=== PATIENT | female | born 1940 | race Caucasian/White ===

== ENCOUNTER 2017-08-10 00:08 | Observation (INO) | payer OTHER ==
[2017-08-10 00:28] VITALS: BMI 28.3
--- NOTE | 2017-08-10 00:29 | PDOC ---
History of Present Illness - General Chief Complaint: Blood Pressure Problem Stated Complaint: R/O BLOOD PRESSURE PROBLEM Time Seen by Provider: 08/10/17 00:25 History Source: Patient - History of Present Illness Initial Comments: 08/10/17 00:46 77 year old female with right sided chest pain worse with inspiration x 2 days and headache. patient believe this is related to high blood pressure. denies NV , diaphoresis, lower extremity edema, recent long travel, prolonged sitting, smoking. Patient has a past medical history of Hypertension. 08/10/17 02:38 Past History - Past Medical History Allergies/Adverse Reactions: Allergies Allergy/AdvReac Type Severity Reaction Status Date / Time No Known Allergies Allergy Verified 08/10/17 00:25 Home Medications: Ambulatory Orders Atorvastatin Ca [Lipitor (Restricted To Cardiology)] 20 mg PO HS 10/01/11 Hydrochlorothiazide [Hctz -] 12.5 mg PO DAILY 08/10/17 Olmesartan Medoxomil [Benicar (Nf)] 40 mg PO DAILY 08/10/17 Omeprazole 40 mg PO DAILY 08/10/17 Anemia: No Asthma: No Cancer: No Cardiac Disorders: No CVA: No COPD: No CHF: No Dementia: No Diabetes: No GI Disorders: Yes (gerd) Disorders: No HTN: Yes Hypercholesterolemia: Yes Liver Disease: No Seizures: No Thyroid Disease: No - Surgical History Abdominal Surgery: No Appendectomy: No Cardiac Surgery: No Cholecystectomy: No Lung Surgery: No Neurologic Surgery: No Orthopedic Surgery: No - Suicide/Smoking/Psychosocial Hx Smoking History: Never smoked Hx Alcohol Use: No Drug/Substance Use Hx: No Substance Use Type: None Review of Systems - Review of Systems Able to Perform ROS?: Yes Is the patient limited [place]er proficient: No Constitutional: No: Symptoms Reported, See HPI, Chills, Diaphoresis, Fever, Loss of Appetite, Malaise, Night Sweats, Weakness, Weight Stable, Unintentional Wgt. Loss, Unexplained wgt Loss, Other HEENTM: No: Symptoms Reported, See HPI, Eye Pain, Blurred Vision, Tearing, Recent change in vision, Double Vision, Cataracts, Ear Pain, Ocular Prothesis, Ear Discharge, Nose Pain, Nose Congestion, Tinnitus, Nose Bleeding, Hearing Loss , Throat Pain, Throat Swelling, Mouth Pain, Dental Problems, Difficulty Swallowing, Mouth Swelling, Other Respiratory: No: Symptoms reported, See HPI, Cough, Orthopnea, Shortness of Breath, SOB with Exertion, SOB at Rest, Stridor, Wheezing, Productive cough, Hemoptysis, Other Cardiac (ROS): Yes: Chest Pain. No: Symptoms Reported, See HPI, Edema, Irregular Heart Rate, Lightheadedness, Palpitations, Syncope, Chest Tightness, Other ABD/GI: No: Symptoms Reported, See HPI, Abdominal Distended, Abd. Pain w/ defecation, Blood Streaked Bowels, Constipated, Diarrhea, Difficulty Swallowing , Nausea, Poor Appetite, Poor Fluid Intake, Rectal Bleeding, Vomiting, Indigestion, Abdominal cramping, Tarry Stools, Other : No: Symptoms Reported, See HPI, Burning, Dysuria, Discharge, Frequency, Flank Pain, Hematuria, Incontinence, Pain, Urgency, Testicular Mass, Testicular Swelling, Lesions, Testicular Pain, Other *Physical Exam - Vital Signs Last Vital Signs Temp Pulse Resp BP Pulse Ox 70 18 151/72 98 08/10/17 00:27 08/10/17 00:27 08/10/17 00:27 08/10/17 00:27 - Physical Exam General Appearance: Yes: Appropriately Dressed Respiratory/Chest: positive: Lungs Clear, Normal Breath Sounds Gastrointestinal/Abdominal: positive: Normal Bowel Sounds, Soft Musculoskeletal: positive: Normal Inspection Extremity: positive: Normal Capillary Refill, Normal Inspection, Normal Range of Motion, Pedal Edema (b/l ) Integumentary: positive: Normal Color, Dry, Warm Neurologic: positive: Fully Oriented, Alert, Normal Mood/Affect ED Treatment Course - LABORATORY CBC & Chemistry Diagram: 08/10/17 00:53 08/10/17 00:53 Medical Decision Making - Medical Decision Making 08/10/17 02:35 A: pleuritic chest pain, P: EKG: NSR 61 bpm. right budle branch block. CBC CMP d-dimer 544 Under PE age rule. 08/10/17 02:50 *DC/Admit/Observation/Transfer Diagnosis at time of Disposition: Chest pain in adult - Discharge Dispostion Admit: Yes - Referrals Referrals: Yaniv Magaña [Primary Care Provider] - - Patient Instructions - Post Discharge Activity
[2017-08-10] MEDS ORDERED: ASPIRIN 81 MG CHEWABLE TABLETS PO ONE (00:38)
[2017-08-10] MEDS ORDERED: ASPIRIN 81 MG CHEWABLE TABLETS ONE (00:53)
[2017-08-10 01:01] LABS: BASO % 0.9 % (0-2.0); EOS % 4.6 % (0-4.5); HEMATOCRIT 35.3 % (32.4-45.2); HEMOGLOBIN 11.8 GM/dL (10.7-15.3); LYMPH % 24.2 % (8-40); MCH 29.2 pg (25.7-33.7); MCHC 33.3 g/dl (32.0-36.0); MEAN CELL VOLUME 87.5 fl (80-96); MEAN PLT VOLUME 10.5 fl (7.5-11.1); MONO % 12.2 % (3.8-10.2); NEUT % 58.1 % (42.8-82.8); PLATELET COUNT 165 K/MM3 (134-434); RBC 4.03 M/mm3 (3.60-5.2); RDW 14.2 % (11.6-15.6); WHITE BLOOD COUNT 6.2 K/mm3 (4.0-10.0)
[2017-08-10 01:20] LABS: INR 0.99 (0.82-1.09); PROTHROMBIN TIME (PATIENT) 11.2 SEC (9.98-11.88)
[2017-08-10 01:29] LABS: ALBUMIN 3.3 g/dl (3.4-5.0); ANION GAP 12 (8-16); BILIRUBIN,TOTAL 0.3 mg/dL (0.2-1.0); BLOOD UREA NITROGEN 21 mg/dL (7-18); CALCIUM 8.8 mg/dL (8.5-10.1); CHLORIDE 104 mmol/L (98-107); CO2 23 mmol/L (21-32); CREATININE 1.3 mg/dL (0.55-1.02); GLUCOSE,RANDOM 87 mg/dL (74-106); MAGNESIUM 2.4 mg/dL (1.8-2.4); POTASSIUM 4.2 mmol/L (3.5-5.1); SGOT/AST 16 U/L (15-37); SGPT/ALT 14 U/L (12-78); SODIUM 139 mmol/L (136-145); TOT PROT 7.4 g/dl (6.4-8.2)
[2017-08-10 01:32] LABS: ALK PHOS 83 U/L (45-117)
--- NOTE | 2017-08-10 03:14 | HP ---
CHIEF COMPLAINT: chest pain, headache PCP: in [facility] HISTORY OF PRESENT ILLNESS: This is a 77 year old female with a past medical history significant for HTN, HLD who presented to the ED with chest pain since 11pm on 08/09/17. Pt reports that the chest pain radiated up the right side of her neck and down the right side of her arm. She also reports headache, dizziness and blurry vision at the time. Pt states that all of her symptoms have resolved at the time of exam. ER course was notable for: (1) Trop neg x 1 (2) D dimer elevated but normal when adjusted for age Recent Travel: pt denies PAST MEDICAL HISTORY: HTN, HLD, GERD, osteoporosis PAST SURGICAL HISTORY: pt denies Social History: Smoking: pt denies Alcohol: pt denies Drugs: pt denies Family History: mother age 94, no medical problems father age 80, unk etiology no siblings children alive and well, no medical problems Allergies No Known Allergies Allergy (Verified 08/10/17 00:25) HOME MEDICATIONS: 3 Medication Instructions Recorded Atorvastatin Ca [Lipitor 20 mg PO HS 10/01/11 (Restricted To Cardiology)] Hydrochlorothiazide [Hctz -] 12.5 mg PO DAILY 08/10/17 Olmesartan Medoxomil [Benicar (Nf)] 40 mg PO DAILY 08/10/17 Omeprazole 40 mg PO DAILY 08/10/17 REVIEW OF SYSTEMS CONSTITUTIONAL: Absent: fever, chills, diaphoresis, generalized weakness, malaise, loss of appetite, weight change HEENT: Absent: rhinorrhea, nasal congestion, throat pain, throat swelling, difficulty swallowing, mouth swelling, ear pain, eye pain, visual changes CARDIOVASCULAR: Present: chest pain Absent: syncope, palpitations, irregular heart rate, lightheadedness, peripheral edema RESPIRATORY: Absent: cough, shortness of breath, dyspnea with exertion, orthopnea, wheezing, stridor, hemoptysis GASTROINTESTINAL: Absent: abdominal pain, abdominal distension, nausea, vomiting, diarrhea, constipation, melena, hematochezia GENITOURINARY: Absent: dysuria, frequency, urgency, hesitancy, hematuria, flank pain, genital pain MUSCULOSKELETAL: Absent: myalgia, arthralgia, joint swelling, back pain, neck pain SKIN: Absent: rash, itching, pallor HEMATOLOGIC/IMMUNOLOGIC: Absent: easy bleeding, easy bruising, lymphadenopathy, frequent infections ENDOCRINE: Absent: unexplained weight gain, unexplained weight loss, heat intolerance, cold intolerance NEUROLOGIC: Present: headache, dizziness Absent: focal weakness or paresthesias, unsteady gait, seizure, mental status changes, bladder or bowel incontinence PSYCHIATRIC: Absent: anxiety, depression, suicidal or homicidal ideation, hallucinations. PHYSICAL EXAMINATION Vital Signs - 24 hr 3 08/10/17 00:27 Pulse Rate 70 Respiratory 18 Rate Blood Pressure 151/72 O2 Sat by Pulse 98 Oximetry (%) GENERAL: Awake, alert, and fully oriented, in no acute distress. HEAD: Normal with no signs of trauma. EYES: Pupils equal, round and reactive to light, extraocular movements intact, sclera anicteric, conjunctiva clear. No lid lag. EARS, NOSE, THROAT: Ears normal, nares patent, oropharynx clear without exudates. Moist mucous membranes. NECK: Normal range of motion, supple without lymphadenopathy, JVD, or masses. LUNGS: Breath sounds equal, clear to auscultation bilaterally. No wheezes, and no crackles. No accessory muscle use. HEART: Regular rate and rhythm, normal S1 and S2 without murmur, rub or gallop. ABDOMEN: Soft, nontender, not distended, normoactive bowel sounds, no guarding, no rebound, no masses. No hepatomegaly or splenomegaly. MUSCULOSKELETAL: Normal range of motion at all joints. No bony deformities or tenderness. No CVA tenderness. UPPER EXTREMITIES: 2+ pulses, warm, well-perfused. No cyanosis. No clubbing. No peripheral edema. LOWER EXTREMITIES: 2+ pulses, warm, well-perfused. No calf tenderness. No peripheral edema. NEUROLOGICAL: Cranial nerves II-XII intact. Normal speech. Normal gait. PSYCHIATRIC: Cooperative. Good eye contact. Appropriate mood and affect. SKIN: Warm, dry, normal turgor, no rashes or lesions noted, normal capillary refill. Laboratory Results - last 24 hr 3 08/10/17 08/10/17 08/10/17 00:53 00:53 00:53 WBC 6.2 RBC 4.03 Hgb 11.8 Hct 35.3 MCV 87.5 MCH 29.2 MCHC 33.3 RDW 14.2 Plt Count 165 MPV 10.5 Neutrophils % 58.1 Lymphocytes % 24.2 D Monocytes % 12.2 H Eosinophils % 4.6 H Basophils % 0.9 PT with INR 11.20 INR 0.99 D-Dimer 544 H Sodium 139 Potassium 4.2 Chloride 104 Carbon Dioxide 23 Anion Gap 12 BUN 21 H Creatinine 1.3 H Creat Clearance w eGFR 39.93 Random Glucose 87 Calcium 8.8 Magnesium 2.4 Total Bilirubin 0.3 D AST 16 ALT 14 Alkaline Phosphatase 83 Creatine Kinase 90 Troponin I < 0.02 Total Protein 7.4 Albumin 3.3 L ECG NSR Vent rate 61, QTC 463 RBBB minimal voltage criteria for LVH TWI lead 3, V2, V3 when compared with ECG 01/13/16, TWI no longer present in lead V4 Radiology Reports CXR- final read pending. no obvious infiltrate or effusion ASSESSMENT/PLAN: 77yF with PMH HTN, HLD, GERD, osteoporosis presented to the ED with chest pain, headache, dizziness. Chest pain - Heart score of 4 - will admit for observation, serial troponins, cardiac monitoring - consider cardiology consult headache/dizziness - resolved - CT head if symptoms recur HTN/HLD - cont home meds GERD - home omeprazole changed to formulary protonix DVT PPX - low risk given expected LOS <48h, defer heparin FEN - pt tolerating po - bmp in am - low sodium diet as tolerated Dispo: admit for further observation Visit type - Emergency Visit Emergency Visit: Yes ED Registration Date: 08/10/17 Care time: The patient presented to the Emergency Department on the above date and was hospitalized for further evaluation of their emergent condition. - New Patient This patient is new to me today: Yes Date on this admission: 08/10/17 - Critical Care Critical Care patient: No Hospitalist Screening - Colonoscopy Questionnaire Colonoscopy Questionnaire: Colonoscopy Questionnaire - Patient: 50 - 75 years old and never had a screening colonoscopy: Yes History of colon or rectal polyps, or CA: No History of IBD, Crohn's disease or UC: No History of abdominal radiation therapy as a child: No - Relative: 1 with colon or rectal CA, or polyps at age 60 or younger: No Colon or rectal CA diagnosed at age 45 or younger: No Multiple relatives with colon or rectal CA: No - Outcome: Screening Result: Positive Screen
[2017-08-10 06:53] LABS: BASO % 0.9 % (0-2.0); EOS % 5.3 % (0-4.5); HEMATOCRIT 33.2 % (32.4-45.2); LYMPH % 29.1 % (8-40); MCH 29.2 pg (25.7-33.7); MCHC 33.2 g/dl (32.0-36.0); MEAN CELL VOLUME 87.8 fl (80-96); MEAN PLT VOLUME 9.4 fl (7.5-11.1); MONO % 10.6 % (3.8-10.2); NEUT % 54.1 % (42.8-82.8); PLATELET COUNT 144 K/MM3 (134-434); RBC 3.79 M/mm3 (3.60-5.2); WHITE BLOOD COUNT 5.7 K/mm3 (4.0-10.0)
[2017-08-10 07:19] LABS: ANION GAP 6 (8-16); BLOOD UREA NITROGEN 21 mg/dL (7-18); CALCIUM 8.4 mg/dL (8.5-10.1); CHLORIDE 106 mmol/L (98-107); CO2 27 mmol/L (21-32); CREATININE 1.1 mg/dL (0.55-1.02); GLUCOSE,RANDOM 91 mg/dL (74-106); MAGNESIUM 2.1 mg/dL (1.8-2.4); PHOSPHOROUS 4.1 mg/dL (2.5-4.9); POTASSIUM 3.7 mmol/L (3.5-5.1); SODIUM 139 mmol/L (136-145)
[2017-08-10 07:23] VITALS: TEMP 98
[2017-08-10] MEDS ORDERED: PATIENT'S OWN MEDICATION (NON-FORMULARY) (Omeprazole [Omeprazole] 40 MG) PO SCH (10:00)
[2017-08-10] MEDS ORDERED: PANTOPRAZOLE 40 MG TABLET (FP) PO SCH (10:00)
[2017-08-10] MEDS ORDERED: PATIENT'S OWN MEDICATION (NON-FORMULARY) (Olmesartan Medoxomil 40 MG) PO SCH (10:00)
[2017-08-10] MEDS ORDERED: HYDROCHLOROTHIAZIDE 12.5 MG CAPSULE (FP) PO SCH (10:00)
[2017-08-10] MEDS ORDERED: VALSARTAN 160 MG TABLET (UD) PO SCH (10:00)
[2017-08-10] MEDS ORDERED: PANTOPRAZOLE 40 MG TABLET (FP) ONE (10:08)
[2017-08-10] MEDS ORDERED: VALSARTAN 80 MG TABLET (UD) ONE (10:08)
--- NOTE | 2017-08-10 11:28 | EKG ---
Test Reason : Blood Pressure : / mmHG Vent. Rate : 061 BPM Atrial Rate : 061 BPM P-R Int : 162 ms QRS Dur : 134 ms QT Int : 460 ms P-R-T Axes : 045 -19 011 degrees QTc Int : 463 ms NORMAL SINUS RHYTHM RIGHT BUNDLE BRANCH BLOCK MINIMAL VOLTAGE CRITERIA FOR LVH, MAY BE NORMAL VARIANT ABNORMAL ECG WHEN COMPARED WITH ECG OF 13-JAN-2016 18:35, NO SIGNIFICANT CHANGE WAS FOUND Confirmed by MD Isauro, Tavon ([id number]) on 08/10/2017 11:28:26 AM Referred By: Confirmed By:Tavon Box MD
--- NOTE | 2017-08-10 12:51 | PN ---
Teaching Attending Note Name of Resident: Faizan Berg ATTENDING PHYSICIAN STATEMENT I saw and evaluated the patient. I reviewed the resident's note and discussed the case with the resident. I agree with the resident's findings and plan as documented. SUBJECTIVE: no fever or chill s, denies CP . CP resolved on admission to ER. she described it as R sided CP in R upper chest and R shoulder wich starte din neck and was associated with numbness in R hand fingers. pain lasted 2.5 days but numbness was for few min. now CP free , with no OSB , no ARAIZA , ,dizziness or any other sx denies any pain in LE , SOB , or cough. cp was not worse with breathing. she denies recent travel ,or prolonged train/plane/car rise OBJECTIVE: NAD CV: RRR, 2/6 Sm at SB. no JVD Lungs: CTAB Ext: no edema , no erythema , no calf tenderness neuro : strength in upper ext: 5/5 in biceps , triceps and shoulder abduction. in LE : 5/5 in hip flexion and knee extens ion/flexion. reflexes 2+ knee jerk and 2+ biceps b/l. nl sensation to light touch. ASSESSMENT AND PLAN: 77 y/o lady with h/o HTN, GERD and HLP who presented with R sided cp which resolved on its own . 1- R sided CP, atypical in nature. EKG at MO reviewed, with no acute ischemic changes ( RBBB, and L axis deviation, an dno change form jan EKG ) . EKG repeated this am x 2 and no change form MN one . trop Nl x 2 . pain could be due to pinched nerve in C spine area , give the associated numbness in hand and fingers on same side and also origin of pain in neck and R sied scalp per her. although D dimer is slightly elevated per lab assay, but age adjusted d dimer for this lady is up to 750, and along with low clinical suspicion for PE ( WELLS score for PE of 0 ) , this does not indicate PE. in addition her pain had resolved, NL SatO2. No need for further investigation as in pt 2- HTN: cont her BP mds 3- LIZA: cr improved form 1.3 to 1.1 withno intervention. hold today's dose of HCTZ and resume tomorrow dc Home d/w daughter and pt
--- NOTE | 2017-08-10 15:08 | EKG ---
Test Reason : Blood Pressure : / mmHG Vent. Rate : 060 BPM Atrial Rate : 060 BPM P-R Int : 134 ms QRS Dur : 134 ms QT Int : 462 ms P-R-T Axes : 052 -16 017 degrees QTc Int : 462 ms POOR DATA QUALITY, INTERPRETATION MAY BE ADVERSELY AFFECTED NORMAL SINUS RHYTHM RIGHT BUNDLE BRANCH BLOCK MINIMAL VOLTAGE CRITERIA FOR LVH, MAY BE NORMAL VARIANT ABNORMAL ECG WHEN COMPARED WITH ECG OF 10-AUG-2017 00:51, NO SIGNIFICANT CHANGE WAS FOUND Confirmed by MD Isauro, Tavon ([id number]) on 08/10/2017 3:07:38 PM Referred By: Confirmed By:Tavon Box MD
--- NOTE | 2017-08-10 15:08 | EKG ---
Test Reason : Blood Pressure : / mmHG Vent. Rate : 062 BPM Atrial Rate : 062 BPM P-R Int : 142 ms QRS Dur : 138 ms QT Int : 454 ms P-R-T Axes : 039 -14 009 degrees QTc Int : 460 ms NORMAL SINUS RHYTHM RIGHT BUNDLE BRANCH BLOCK MINIMAL VOLTAGE CRITERIA FOR LVH, MAY BE NORMAL VARIANT ABNORMAL ECG WHEN COMPARED WITH ECG OF 10-AUG-2017 09:57, NO SIGNIFICANT CHANGE WAS FOUND Confirmed by MD Isauro, Tavon ([id number]) on 08/10/2017 3:07:27 PM Referred By: Confirmed By:Tavon Box MD
[2017-08-10 17:36] VITALS: BP 136/81; PULSE 70
--- NOTE | 2017-08-10 17:46 | DS ---
Physical Exam: SUBJECTIVE: Patient's chest pain resolved. No SOB, no headache or dizziness. OBJECTIVE: Vital Signs Period Temp Pulse Resp BP Sys/Romero Pulse Ox Last 24 Hr 98 F 57-70 15-18 124-151/67-89 96-100 PHYSICAL EXAM GENERAL: AOx3 EYES: PERRLA, EOMI LUNGS: CTA, no wheezes on exam HEART: RRR, systolic murmur noted on exam, no rubs or gallops ABDOMEN: Soft, nontender, BS present EXTREMITIES: No edema NEUROLOGICAL: CN II-XII, no motor or sensory deficitys PSYCH: Normal mood, normal affect. SKIN: Warm, dry, normal turgor, no rashes or lesions noted. LABS Laboratory Results - last 24 hr 08/10/17 08/10/17 08/10/17 00:53 00:53 00:53 WBC 6.2 RBC 4.03 Hgb 11.8 Hct 35.3 MCV 87.5 MCH 29.2 MCHC 33.3 RDW 14.2 Plt Count 165 MPV 10.5 Neutrophils % 58.1 Lymphocytes % 24.2 D Monocytes % 12.2 H Eosinophils % 4.6 H Basophils % 0.9 PT with INR 11.20 INR 0.99 D-Dimer Sodium 139 Potassium 4.2 Chloride 104 Carbon Dioxide 23 Anion Gap 12 BUN 21 H Creatinine 1.3 H Creat Clearance w eGFR 39.93 Random Glucose 87 Calcium 8.8 Phosphorus Magnesium 2.4 Total Bilirubin 0.3 D AST 16 ALT 14 Alkaline Phosphatase 83 Creatine Kinase 90 Troponin I < 0.02 Total Protein 7.4 Albumin 3.3 L 08/10/17 08/10/17 08/10/17 00:53 06:20 06:20 WBC 5.7 RBC 3.79 Hgb 11.0 Hct 33.2 MCV 87.8 MCH 29.2 MCHC 33.2 RDW 14.0 Plt Count 144 MPV 9.4 D Neutrophils % 54.1 Lymphocytes % 29.1 D Monocytes % 10.6 H Eosinophils % 5.3 H Basophils % 0.9 PT with INR INR D-Dimer 544 H Sodium 139 Potassium 3.7 Chloride 106 Carbon Dioxide 27 Anion Gap 6 L BUN 21 H Creatinine 1.1 H Creat Clearance w eGFR Random Glucose 91 Calcium 8.4 L Phosphorus 4.1 Magnesium 2.1 Total Bilirubin AST ALT Alkaline Phosphatase Creatine Kinase 77 Troponin I < 0.02 Total Protein Albumin 08/10/17 13:00 WBC RBC Hgb Hct MCV MCH MCHC RDW Plt Count MPV Neutrophils % Lymphocytes % Monocytes % Eosinophils % Basophils % PT with INR INR D-Dimer Sodium Potassium Chloride Carbon Dioxide Anion Gap BUN Creatinine Creat Clearance w eGFR Random Glucose Calcium Phosphorus Magnesium Total Bilirubin AST ALT Alkaline Phosphatase Creatine Kinase 86 Troponin I < 0.02 Total Protein Albumin IMAGING: CXR: No acute pathology HOSPITAL COURSE: Date of Admission:08/10/17 77 year old female with a past medical history of HTN and HLD first presented to the ED for 1 day hx of right-sided chest pain, R arm and neck pain, blurry vision and headache. She was given aspirin in the ED. Her symptoms resolved before admission. EKG done in the ED showed normal sinus rhythm w/ R bundle branch block without any ST changes. Troponins returned negative on two counts. Labs were within normal limits. Patient was admitted by ED for observation. Patient remained asymptomatic while in the hospital. EKG was repeated and was unchanged from initial EKG. Because of low risk of being ACS due to clinical exam and labwork, patient was discharged home and instructed to see her PCP in 1 week and to make an appointment with the revenue settlements administrator Dr. Rodriguez. Date of Discharge: 08/10/17 Minutes to complete discharge: 35 Discharge Summary Reason For Visit: CHEST PAIN IN ADULT Current Active Problems Chest pain in adult (Acute) Condition: Improved - Instructions Diet, Activity, Other Instructions: You were admitted to the hospital for the treatment of chest pain. After we ran some tests for your heart, we do not believe the chest pain came from your heart. The pain was likely related to a muscular issue in your chest wall or your blood pressure. Medical Recommendations: -It is important that you maintain your blood pressure at an appropriate level. -Continue your home blood pressure medications, but make sure to see your doctor within a week to discuss any changes Referrals: -Please make an appointment with your primary care physician within 1 week of discharge -Please make an appointment with the revenue settlements administrator Dr. Rodriguez, to evaluate your heart further within 1- 2 weeks Referrals: Yaniv Magaña [Primary Care Provider] - 1 Week Navneet Rodriguez MD [Staff Physician] - 2 Weeks Disposition: HOME - Home Medications Comprehensive Discharge Medication List: Ambulatory Orders Atorvastatin Ca [Lipitor] 20 mg PO HS 10/01/11 Hydrochlorothiazide [Hctz -] 12.5 mg PO DAILY 08/10/17 Ibandronate Sodium 150 mg PO MONTHLY 08/10/17 Mometasone Furoate [Elocon] 15 gm TP BID 08/10/17 Olmesartan Medoxomil [Benicar -] 40 mg PO DAILY 08/10/17 Omeprazole 40 mg PO DAILY 08/10/17 This patient is new to me today: Yes Date on this admission: 08/10/17 Emergency Visit: Yes ED Registration Date: 08/10/17 Care time: The patient presented to the Emergency Department on the above date and was hospitalized for further evaluation of their emergent condition. Critical Care patient: No - Discharge Referral Referred to [facility] Med P.C[facility] No
[2017-08-10] MEDS ORDERED: ATORVASTATIN CA 20 MG TABLET (FP) PO SCH (22:00)
== END 2017-08-10 16:30 | disposition home or self-care (01) ==
LOC: JER 00:08 → JERBED 02:41
PROVIDERS: ADMIT Internal Medicine; ATTEND Internal Medicine
DX: R07.89 Other chest pain (principal); I10 Essential (primary) hypertension; E78.5 Hyperlipidemia, unspecified; K21.9 Gastro-esophageal reflux disease without esophagitis; N17.9 Acute kidney failure, unspecified
CPT/HCPCS: 36415; 71046-TC-FY; 80048; 80053; 82550; 83735; 84100; 84484; 85025; 85379; 85610; 93005; 93010; 99284-25; G0378

== ENCOUNTER 2018-01-08 14:56 | Observation (INO) | payer OTHER ==
[2018-01-08 15:10] VITALS: BMI 29.0
[2018-01-08 17:08] LABS: EOS % 4.5 % (0-4.5); HEMATOCRIT 35.3 % (32.4-45.2); LYMPH % 20.2 % (8-40); MCH 30.3 pg (25.7-33.7); MEAN CELL VOLUME 89.1 fl (80-96); MEAN PLT VOLUME 10.8 fl (7.5-11.1); MONO % 9.2 % (3.8-10.2); NEUT % 65.1 % (42.8-82.8); PLATELET COUNT 158 K/MM3 (134-434); RBC 3.96 M/mm3 (3.60-5.2); RDW 13.8 % (11.6-15.6); WHITE BLOOD COUNT 4.7 K/mm3 (4.0-10.0)
[2018-01-08 17:10] LABS: URINE APPEARANCE CLEAR; URINE BILIRUBIN NEGATIVE (<2.0 mg/dL); URINE COLOR COLORLESS; URINE GLUCOSE (UA) NEGATIVE (NEGATIVE); URINE KETONE NEGATIVE (NEGATIVE); URINE LEUK ESTERASE NEGATIVE (NEGATIVE); URINE NITRITE NEGATIVE (NEGATIVE); URINE PROTEIN NEGATIVE (NEGATIVE); URINE UROBILINOGEN NEGATIVE mg/dL (0.2-1.0)
--- NOTE | 2018-01-08 17:19 | PDOC ---
History of Present Illness - General Chief Complaint: Blood Pressure Problem Stated Complaint: HEAD PAIN, FATIGUE Time Seen by Provider: 01/08/18 15:13 - History of Present Illness Initial Comments: 01/08/18 17:15 77 yo F, with a hx of HTN, osteoporosis and HLD, who presents to the ER with high blood pressure, headache and neck pain for the past 2 days. She also reports SOB and vague chest pain which began yesterday. She also feels mildly lightheaded and dizzy. Claims she had blurry vision yesterday. Denies this being the worst headache of her life. Denies acute onset. Denies nausea, vomiting. Denies recent fevers. Says she is compliant with her BP meds. She does not often check her BP. 01/08/18 17:25 Past History - Past Medical History Allergies/Adverse Reactions: Allergies Allergy/AdvReac Type Severity Reaction Status Date / Time No Known Allergies Allergy Verified 01/08/18 15:07 Home Medications: Ambulatory Orders Atorvastatin Ca [Lipitor] 20 mg PO HS 10/01/11 Hydrochlorothiazide [Hctz -] 25 mg PO DAILY 08/10/17 Ibandronate Sodium 150 mg PO MONTHLY 08/10/17 Mometasone Furoate [Elocon] 15 gm TP BID 08/10/17 Olmesartan Medoxomil [Benicar -] 40 mg PO DAILY 08/10/17 Omeprazole 40 mg PO DAILY 08/10/17 Calcium Carbonate/Vitamin D3 [Calcium 500 + Vit D Caplet] 1 each PO DAILY Anemia: No Asthma: No Cancer: No Cardiac Disorders: No CVA: No COPD: No CHF: No Dementia: No Diabetes: No GI Disorders: Yes (gerd) Disorders: No HTN: Yes Hypercholesterolemia: Yes Liver Disease: No Seizures: No Thyroid Disease: No - Surgical History Abdominal Surgery: No Appendectomy: No Cardiac Surgery: No Cholecystectomy: No Lung Surgery: No Neurologic Surgery: No Orthopedic Surgery: No - Immunization History Immunization Up to Date: Yes - Suicide/Smoking/Psychosocial Hx Smoking History: Never smoked Have you smoked in the past 12 months: No Information on smoking cessation initiated: No Hx Alcohol Use: No Drug/Substance Use Hx: No Substance Use Type: None Review of Systems - Review of Systems Comments:: 01/08/18 17:28 CONSTITUTIONAL: Absent: fever, chills, diaphoresis, generalized weakness, malaise, loss of appetite HEENT: Positive: visual changes Absent: rhinorrhea, nasal congestion, throat pain, throat swelling, difficulty swallowing, mouth swelling, ear pain, eye pain CARDIOVASCULAR: Positive: Chest pain, lightheadedness Absent: syncope, palpitations, irregular heart rate, peripheral edema RESPIRATORY: Positive: SOB Absent: cough,dyspnea with exertion, orthopnea, wheezing, stridor, hemoptysis GASTROINTESTINAL: Absent: abdominal pain, abdominal distension, nausea, vomiting, diarrhea, constipation, melena, hematochezia GENITOURINARY: Absent: dysuria, frequency, urgency, hesitancy, hematuria, flank pain, genital pain MUSCULOSKELETAL: Absent: myalgia, arthralgia, joint swelling SKIN: Absent: rash, itching, pallor HEMATOLOGIC/IMMUNOLOGIC: Absent: easy bleeding, easy bruising, lymphadenopathy, frequent infections ENDOCRINE: Absent: unexplained weight gain, unexplained weight loss, heat intolerance, cold intolerance NEUROLOGIC: Positive: Headache, dizziness. Absent: focal weakness or paresthesias, unsteady gait, seizure, mental status changes, bladder or bowel incontinence PSYCHIATRIC: Absent: anxiety, depression, suicidal or homicidal ideation, hallucinations. *Physical Exam - Vital Signs Last Vital Signs Temp Pulse Resp BP Pulse Ox 97.6 F 58 L 18 196/77 100 01/08/18 15:08 01/08/18 15:08 01/08/18 15:08 01/08/18 15:08 01/08/18 15:08 - Physical Exam Comments: 01/08/18 17:30 GENERAL: Looks uncomfortable bc of headache. Well developed, well nourished. Awake and alert. No acute distress. HEENT: Normocephalic, atraumatic. PERRLA, EOMI. No conjunctival pallor. Sclera are non- icteric. Moist mucous membranes. Oropharynx is clear. NECK: Supple. Full ROM. No JVD. Carotid pulses 2+ and symmetric, without bruits. No thyromegaly. No lymphadenopathy. CARDIOVASCULAR: Regular rate and rhythm. No murmurs, rubs, or gallops. Distal pulses are 2+ and symmetric. PULMONARY: Mild congestion at the lung bases, possible crackles. No evidence of respiratory distress. No wheezing, rales or rhonchi. ABDOMINAL: Soft. Non-tender. Non-distended. No rebound or guarding. No organomegaly. Normoactive bowel sounds. MUSCULOSKELETAL Normal range of motion at all joints. No bony deformities or tenderness. No CVA tenderness. EXTREMITIES: No cyanosis. No clubbing. No edema. No calf tenderness. SKIN: Warm and dry. Normal capillary refill. No rashes. No jaundice. NEUROLOGICAL: Alert, awake, appropriate. Cranial nerves 2-12 intact. No deficits to light touch and temperature in face, upper extremities and lower extremities. No motor deficits in the in face, upper extremities and lower extremities. Normoreflexic in the upper and lower extremities. Normal speech. Toes are down-going bilaterally. Gait is normal without ataxia. PSYCHIATRIC: Cooperative. Good eye contact. Appropriate mood and affect. 01/08/18 17:32 ED Treatment Course - LABORATORY CBC & Chemistry Diagram: 01/08/18 17:00 01/08/18 17:00 - ADDITIONAL ORDERS Additional order review: Laboratory Results 01/08/18 17:00 Urine Color Colorless Urine Appearance Clear Urine pH 7.0 D Ur Specific [place] 1.006 Urine Protein Negative Urine Glucose (UA) Negative Urine Ketones Negative Urine Blood Negative Urine Nitrite Negative Urine Bilirubin Negative Urine Urobilinogen Negative Ur Leukocyte Esterase Negative 01/08/18 17:00 RBC 3.96 MCV 89.1 MCHC 34.0 RDW 13.8 MPV 10.8 D Neutrophils % 65.1 D Lymphocytes % 20.2 D Monocytes % 9.2 Eosinophils % 4.5 Basophils % 1.0 - RADIOLOGY Radiology Studies Ordered: Category Date Time Status CHEST PA & LAT [RAD] Stat Radiology 01/08/18 16:43 Ordered Medical Decision Making - Medical Decision Making 01/08/18 17:33 77 yo F w HTN here with high BP and headache. She had her BP meds switched one month back, so it's possible she has had high BP for some time without realizing. Most concerning is to rule out hypertensive urgency/emergency. Plan assess for end organ damage - trop, bun, cr, alt, ast, alk phos, CXR. Giving tylenol for headache relief Patient is going to be admitted bc of her high BP, chest pain and SOB. First trop negative. *DC/Admit/Observation/Transfer Diagnosis at time of Disposition: Headache - Discharge Dispostion Condition at time of disposition: Stable - Referrals Referrals: Yaniv Magaña [Primary Care Provider] - - Patient Instructions - Post Discharge Activity
[2018-01-08] MEDS ORDERED: ACETAMINOPHEN 500 MG TABLET (FP) PO ONE (17:24)
[2018-01-08] MEDS ORDERED: ACETAMINOPHEN 325 MG TABLET (FP) ONE (17:35)
--- NOTE | 2018-01-08 17:42 | PDOC ---
Attending Attestation - Resident Resident Name: KeyonnaPrakash - ED Attending Attestation I have performed the following: I have examined & evaluated the patient, The case was reviewed & discussed with the resident, I agree w/resident's findings & plan, Exceptions are as noted - HPI HPI: 01/08/18 17:34 The patient is a 77 year old female with a significant PMH of HTN, osteoporosis and HLD presenting with gradual onset diffuse headache, shortness of breath, generalized weakness, and chest pressure for the past three days and elevated blood pressure today. The patient states she decided to take her blood pressure today after the persistence of the symptoms. When it was elevated to the 190s, she decided to present to the ED. Blood pressure in the ER is 196/77. Patients bp is typically 130/85. Patient saw a financial professional 2-3 weeks ago and was prescribed olmesartan instead of the two pills she was taking for her blood pressure. Pt states chest pressure is across her chest and does not change with rest or exertion. The patient has also been taking a [employer] cleanser for the past week to become more "healthy." The patient denies neck stiffness, numbness/tingling/weakness of her extremities , and dizziness. Denies fever, chills, nausea, vomit, diarrhea and constipation. Denies dysuria, frequency, urgency and hematuria. Allergies: NKA Past surgical history: None reported. Social history: No reported alcohol, drug, or cigarette use. PCP - Dr. Yaniv Licea - [place] - Physicial Exam PE: 01/08/18 17:42 GENERAL: Awake, alert, and fully oriented, in no acute distress HEAD: No signs of trauma EYES: PERRLA, EOMI, sclera anicteric, conjunctiva clear ENT: Auricles normal inspection, hearing grossly normal, nares patent, oropharynx clear without exudates. Moist mucosa NECK: Normal ROM, supple, no lymphadenopathy, JVD, or masses LUNGS: +rales at LL base, otherwise, breath sounds equal, clear to auscultation. No wheezes, and no crackles HEART: Regular rate and rhythm, normal S1 and S2, no murmurs, rubs or gallops ABDOMEN: Soft, nontender, normoactive bowel sounds. No guarding, no rebound. No masses EXTREMITIES: Normal range of motion, no edema. No clubbing or cyanosis. No cords, erythema, or tenderness NEUROLOGICAL: Normal speech, cranial nerves intact, negative pronator drift, 5/ 5 strength in all 4 extremities, normal sensation to light touch in all 4 extremities, normal cerebellar exam, normal gait, normal reflexes and tone SKIN: Warm, Dry, normal turgor, no rashes or lesions noted. - Medical Decision Making 01/08/18 17:45 77-year-old female with a history of hypertension, hyperlipidemia presents the emergency department with 3 days of chest pain, shortness of breath and elevated blood pressure at home today. Vitals in the ED remarkable for elevated blood pressure to the 190s systolic. Exam with rales at the left lung base. Differential includes but not limited to ACS vs CHF vs HTN emergency. Plan -labs -UA -CXR -likely tele obs admit Discharge Disposition - Diagnosis Headache - Discharge Dispostion Condition at time of disposition: Stable Decision to Admit order: Yes - Referrals Referrals: Yaniv Magaña [Primary Care Provider] - - Patient Instructions - Post Discharge Activity Heart Score/ECG Review - History History: Slightly suspicious - Electrocardiogram EKG: Non specific repolarization disturbance - Age Age: >/= 65 - Risk Factors Based on the list above the patient has:: >/=3 risk factors or Hx atherosclerotic disease - Troponin Troponin: </= normal limit - Score Heart Score - Total: 5 #1 01/08/18 17:44 Twelve-lead EKG was performed and reviewed by me. Normal sinus rhythm, rate 60. Normal axis.+ Right bundle branch block.+ LVH. When compared to EKG from 2017, no significant change.
[2018-01-08 17:45] LABS: ALBUMIN 3.5 g/dl (3.4-5.0); ALK PHOS 77 U/L (45-117); ANION GAP 7 (8-16); BILIRUBIN,TOTAL 0.4 mg/dL (0.2-1.0); BLOOD UREA NITROGEN 17 mg/dL (7-18); CALCIUM 8.9 mg/dL (8.5-10.1); CHLORIDE 109 mmol/L (98-107); CO2 26 mmol/L (21-32); CREATININE 0.9 mg/dL (0.55-1.02); GLUCOSE,RANDOM 83 mg/dL (74-106); POTASSIUM 4.2 mmol/L (3.5-5.1); SGOT/AST 17 U/L (15-37); SGPT/ALT 21 U/L (12-78); SODIUM 142 mmol/L (136-145); TOT PROT 7.6 g/dl (6.4-8.2)
[2018-01-08] MEDS ORDERED: LABETALOL HCL 5 MG/1 ML (100MG/20 ML VIAL) IVPUSH ONE (20:45)
--- NOTE | 2018-01-08 21:01 | HP ---
CHIEF COMPLAINT: " headache and shortness of breath" HISTORY OF PRESENT ILLNESS: Patient is a 77 y/o female with a history of osteoporosis, GERD, and HLD who presents with headache and shortness of breath. She reports she has a history of high blood pressure. She had her medications changed about three months ago. She states her blood pressure was high so she was given a new medication to help. She states she takes her medications every day and is compliant. She denies any chest pain right now but reports she was having some a few days ago. She also reports feeling light headed a few days ago. Patient states she still has a slight headache but it is much better. Patient has no further complaints today. ER course was notable for: (1) EKG: no acute changes (2) (3) Recent Travel: PAST MEDICAL HISTORY: osteoperosis, HLD PAST SURGICAL HISTORY: none Social History: Smoking: never Alcohol: denies Drugs: Family History: Allergies No Known Allergies Allergy (Verified 01/08/18 15:07) HOME MEDICATIONS: Home Medications Medication Instructions Recorded Atorvastatin Ca [Lipitor] 20 mg PO HS 10/01/11 Hydrochlorothiazide [Hctz -] 25 mg PO DAILY 08/10/17 Ibandronate Sodium 150 mg PO MONTHLY 08/10/17 Mometasone Furoate [Elocon] 15 gm TP BID 08/10/17 Olmesartan Medoxomil [Benicar -] 40 mg PO DAILY 08/10/17 Omeprazole 40 mg PO DAILY 08/10/17 Calcium Carbonate/Vitamin D3 1 each PO DAILY 01/08/18 [Calcium 500 + Vit D Caplet] REVIEW OF SYSTEMS CONSTITUTIONAL: Absent: fever, chills, diaphoresis, generalized weakness, HEENT: Absent: rhinorrhea, nasal congestion, throat pain, CARDIOVASCULAR: Absent: chest pain, syncope, palpitations, irregular heart rate, lightheadedness , peripheral edema RESPIRATORY: Absent: cough, shortness of breath, dyspnea with exertion, GASTROINTESTINAL: Absent: abdominal pain, abdominal distension, nausea, vomiting, diarrhea, constipation, GENITOURINARY: Absent: dysuria, frequency, urgency, hesitancy, hematuria, flank pain, genital pain MUSCULOSKELETAL: Absent: myalgia, arthralgia, joint swelling, back pain, neck pain SKIN: Absent: rash, itching, pallor NEUROLOGIC: headache Absent: focal weakness or paresthesias, dizziness, unsteady gait, seizure, mental status changes, bladder or bowel incontinence PSYCHIATRIC: Absent: anxiety, depression, suicidal or homicidal ideation, hallucinations. PHYSICAL EXAMINATION Vital Signs - 24 hr 01/08/18 01/08/18 15:08 18:13 Temperature 97.6 F 98.0 F Pulse Rate 58 L Pulse Rate [ 67 Left] Respiratory 18 18 Rate Blood Pressure 196/77 Blood Pressure 197/74 [Left] O2 Sat by Pulse 100 100 Oximetry (%) GENERAL: Awake, alert, and fully oriented, in no acute distress. HEAD: Normal with no signs of trauma. EYES: Pupils equal, round and reactive to light LUNGS: Breath sounds equal, clear to auscultation bilaterally. HEART: Regular rate and rhythm, ABDOMEN: Soft, nontender, not distended, normoactive bowel sounds, MUSCULOSKELETAL: Normal range of motion at all joints. No bony deformities or tenderness. No CVA tenderness. LOWER EXTREMITIES: 2+ pulses, warm, well-perfused. No calf tenderness. some upper extremity edema NEUROLOGICAL: Cranial nerves II-XII intact. Normal speech. PSYCHIATRIC: Cooperative. Good eye contact. Appropriate mood and affect. SKIN: Warm, dry, normal turgor, Laboratory Results - last 24 hr 01/08/18 01/08/18 01/08/18 17:00 17:00 17:00 WBC 4.7 RBC 3.96 Hgb 12.0 Hct 35.3 MCV 89.1 MCH 30.3 MCHC 34.0 RDW 13.8 Plt Count 158 MPV 10.8 D Absolute Neuts (auto) 3.0 Neutrophils % 65.1 D Lymphocytes % 20.2 D Monocytes % 9.2 Eosinophils % 4.5 Basophils % 1.0 Nucleated RBC % 0 Sodium 142 Potassium 4.2 Chloride 109 H Carbon Dioxide 26 Anion Gap 7 L BUN 17 Creatinine 0.9 Creat Clearance w eGFR > 60 Random Glucose 83 Calcium 8.9 Total Bilirubin 0.4 AST 17 ALT 21 Alkaline Phosphatase 77 Creatine Kinase Troponin I Total Protein 7.6 Albumin 3.5 Urine Color Colorless Urine Appearance Clear Urine pH 7.0 D Ur Specific [place] 1.006 Urine Protein Negative Urine Glucose (UA) Negative Urine Ketones Negative Urine Blood Negative Urine Nitrite Negative Urine Bilirubin Negative Urine Urobilinogen Negative Ur Leukocyte Esterase Negative 01/08/18 17:00 WBC RBC Hgb Hct MCV MCH MCHC RDW Plt Count MPV Absolute Neuts (auto) Neutrophils % Lymphocytes % Monocytes % Eosinophils % Basophils % Nucleated RBC % Sodium Potassium Chloride Carbon Dioxide Anion Gap BUN Creatinine Creat Clearance w eGFR Random Glucose Calcium Total Bilirubin AST ALT Alkaline Phosphatase Creatine Kinase 89 Troponin I < 0.02 Total Protein Albumin Urine Color Urine Appearance Urine pH Ur Specific [place] Urine Protein Urine Glucose (UA) Urine Ketones Urine Blood Urine Nitrite Urine Bilirubin Urine Urobilinogen Ur Leukocyte Esterase ASSESSMENT/PLAN: Patient is a 77 y/o female with a history of osteoporosis and HLD who presents with hypertensive urgency. #Hypertensive Urgency - tele obs, watch monitor - lebetalol 5mg IV push - ED pressure: 196/77 - currently stable - resume home medications - troponin negative x 2 - ekg no acute changes - monitor vitals #osteoperosis -Ibandronate #HLD - atorvastatin #GERD - omeprazole 40 #DVT ppx - heparin TID Dispo: reevaluate tomorrow, may be able to go Visit type - Emergency Visit Emergency Visit: No - New Patient This patient is new to me today: Yes Date on this admission: 01/09/18 - Critical Care Critical Care patient: No Hospitalist Screening - Colonoscopy Questionnaire Colonoscopy Questionnaire: Colonoscopy Questionnaire - Patient: 50 - 75 years old and never had a screening colonoscopy: Unknown History of colon or rectal polyps, or CA: Unknown History of IBD, Crohn's disease or UC: Unknown History of abdominal radiation therapy as a child: Unknown - Relative: 1 with colon or rectal CA, or polyps at age 60 or younger: Unknown Colon or rectal CA diagnosed at age 45 or younger: Unknown Multiple relatives with colon or rectal CA: Unknown - Outcome: Screening Result: Negative Screen
[2018-01-09] MEDS ORDERED: PATIENT'S OWN MEDICATION (NON-FORMULARY) (Ibandronate Sodium [Ibandronate Sodium] 150 MG) PO SCH (01:30)
--- NOTE | 2018-01-09 01:35 | PN ---
Teaching Attending Note Name of Resident: April Romero ATTENDING PHYSICIAN STATEMENT I saw and evaluated the patient. Chart, data, imaging reviewed. I reviewed the resident's note and discussed the case with the resident. I agree with the resident's findings and plan as documented. SUBJECTIVE: 77 yo woman with PMH of HTN, osteoporosis c/o headache, blurry vision, generalized weakness, some mild SOB for the past 2-3 days. Patient also noted elevated BP at home and decided to come to hospital for further evaluation. No significant chest pain endorsed currently. Patient saw a project executive 2-3 weeks ago and was prescribed olmesartan instead of the two pills she was taking for her blood pressure. OBJECTIVE: Last Vital Signs Temp Pulse Resp BP Pulse Ox 98.2 F 60 18 175/70 99 01/09/18 01:14 01/09/18 01:14 01/09/18 01:14 01/09/18 01:14 01/09/18 01:14 General- nad, aaox3, nontoxic appearing heent- at, nc neck supple, no jvd cv-s1+s2+rrr chest-cta b/l abd-soft,nt bs+ ext- neg for pedal edema, warm, dp2+ b/l neuro -CN 3-12 intact, no focal neurological deficits appreciated Abnormal Lab Results 01/08/18 17:00 Chloride 109 H Anion Gap 7 L ekg reviewed by me- nsr, RBBB, poor r wave progression, nonspecific t wave changes ASSESSMENT AND PLAN 77yo woman with uncontrolled HTN, presenting with symptomatic hypertensive urgency #Hypertensive urgency - likely secondary to medication noncompliance vs recent blood pressure med change resulting in insufficient control. BP improved after labetolol IVP and pt's headache improved as well. No evidence of end organ damage on labs. Trop was neg x2. -tele-observation -restart home med - olmesartan -add amlodipine 10mg daily for better control -c/w statin, PPI -fall precautions -bed rest -check orthostatics -lipid panel -a1c -heparin sc for dvt ppx see resident note for details
[2018-01-09] MEDS: HEPARIN NA (PORCINE) 5,000 UNITS/ML 1ML VIAL SQ SCH ×4 (06:32→21:40)
[2018-01-09 08:56] LABS: HEMATOCRIT 35.1 % (32.4-45.2); HEMOGLOBIN 11.8 GM/dL (10.7-15.3); MCHC 33.7 g/dl (32.0-36.0); MEAN CELL VOLUME 89.2 fl (80-96); MEAN PLT VOLUME 9.8 fl (7.5-11.1); PLATELET COUNT 143 K/MM3 (134-434); RBC 3.93 M/mm3 (3.60-5.2); RDW 13.9 % (11.6-15.6)
[2018-01-09 09:28] LABS: ANION GAP 8 (8-16); BLOOD UREA NITROGEN 17 mg/dL (7-18); CALCIUM 8.7 mg/dL (8.5-10.1); CHLORIDE 110 mmol/L (98-107); CO2 25 mmol/L (21-32); CREATININE 1.1 mg/dL (0.55-1.02); GLUCOSE,RANDOM 111 mg/dL (74-106); POTASSIUM 3.8 mmol/L (3.5-5.1); SODIUM 143 mmol/L (136-145)
--- NOTE | 2018-01-09 09:44 | DS ---
Physical Examination Vital Signs: Vital Signs Temperature 97.9 F 01/09/18 06:00 Pulse Rate 59 L 01/09/18 06:00 Respiratory Rate 18 01/09/18 06:00 Blood Pressure 147/82 01/09/18 06:00 O2 Sat by Pulse Oximetry (%) 99 01/09/18 01:14 Findings/Remarks: NO CHANGE IN VISION , NO sob , NO cp , FEELS BACK TO nl. reports co mpliance with her BP medication and low salt diet PE: NAd , AAOx3. CV: RRR, 2/6 SM at abse , LLSB , and apex. Lungs:CTAB Abd: sfot, NT, ND , NLBS Ext: no edema Neuro: EOMI, round equal pupils, reactive to light , no faciaL DROOP. TONGUE AND UVULAL AT mid line. strength 5/5 in upper and lower extremities proximally and distally. sensation to light touch NL. Labs: CBC, BMP 01/09/18 08:35 01/09/18 08:35 Discharge Summary Reason For Visit: CHEST PAIN IN ADULT Current Active Problems Headache (Acute) - HTN urgency Hospital Course: 77 y/o very pleasant lady with h./o HTN and Osteoporosis who presented with ARAIZA , blurry vision , and SOB . SBP at home was 200. in ER her BP was found to be 190s. she was treated with IV labetalol and was admitted to floor. of note, her BP meds were changed < a months ago, and she was placed on Olmesartan/HCTZ which she was taking at presentation her, EKG showed sinus rhythm, RBBB, and TWI in III which was unchanged from EKG in 08/01. trop was NL. Cxray with no infiltrate. this am , BP is 147/85. she hasn o symptoms of SOB , or CP. no visual changes and her ARAIZA has much improved. her neuro exam is NL. Norvasc 5 mg was added to her regimen. BP remained stable. patient was dc home to follow with PCP . she was advised to check BP daily. plan was d/w her and her daughter over phone. pt gait was NL when I walked her dispo: HOme condition improved f/u PCP. Condition: Improved - Instructions Diet, Activity, Other Instructions: - YOU WERE TREATED FOR HYPERTENSIVE URGECNY ( VERY HIGH BLOOD PRESSURE ) - PLEASE FOLLOW WITH YOU PRIMARY CARE DOCTOR TO ADJUST YOUR BLOOD PRESSURE REGIMEN IF NEEDED . - CHECK YOUR BLOOD PRESSURE EVERY MORNING AND TAKE LOG TO YOUR PRIMARY DOCTOR WHEN YOU SEE HIM - PLEASE TAKE LOW SALT DIET - NORVASC ( AMLODIPINE ) WAS ADDED TO YOUR BLOOD PRESSURE MEDICATIONS. GOOD LUCK Referrals: Yaniv Magaña [Primary Care Provider] - 1 Week Disposition: HOME - Home Medications Comprehensive Discharge Medication List: Ambulatory Orders Atorvastatin Ca [Lipitor] 20 mg PO HS 10/01/11 Omeprazole 20 mg PO DAILY 08/10/17 Amlodipine Besylate [Norvasc -] 5 mg PO DAILY #30 tablet 01/09/18 Olmesartan/Hydrochlorothiazide [Olmesartan-Hctz 40-25 mg Tab] 1 tab PO DAILY
[2018-01-09] MEDS ORDERED: amLODIPine BESYLATE 5 MG TABLET (FP) PO SCH (10:00)
[2018-01-09] MEDS ORDERED: PATIENT'S OWN MEDICATION (NON-FORMULARY) (Olmesartan Medoxomil 40 MG) PO SCH (10:00)
[2018-01-09] MEDS: HYDROCHLOROTHIAZIDE 25 MG TABLET (FP) PO SCH (10:55)
[2018-01-09] MEDS: VALSARTAN 160 MG TABLET (UD) PO SCH (10:55)
[2018-01-09] MEDS: CALCIUM 500MG/VIT-D 200 UNITS COMBO TABLET (FP) PO SCH (10:56)
[2018-01-09] MEDS: PANTOPRAZOLE 40 MG TABLET (FP) PO SCH (10:56)
--- NOTE | 2018-01-09 15:52 | PN ---
Progress Note (short form) - Note Progress Note: Subjective: no pain, no ARAIZA , no SOB. feels much better Objective: Vital Signs: Last Vital Signs Temp Pulse Resp BP Pulse Ox 98.3 F 68 20 195/77 98 01/09/18 14:00 01/09/18 14:00 01/09/18 14:00 01/09/18 14:00 01/09/18 09:00 Laboratory Results - last 24 hr 01/08/18 01/08/18 01/08/18 17:00 17:00 17:00 WBC 4.7 RBC 3.96 Hgb 12.0 Hct 35.3 MCV 89.1 MCH 30.3 MCHC 34.0 RDW 13.8 Plt Count 158 MPV 10.8 D Absolute Neuts (auto) 3.0 Neutrophils % 65.1 D Lymphocytes % 20.2 D Monocytes % 9.2 Eosinophils % 4.5 Basophils % 1.0 Nucleated RBC % 0 Sodium 142 Potassium 4.2 Chloride 109 H Carbon Dioxide 26 Anion Gap 7 L BUN 17 Creatinine 0.9 Creat Clearance w eGFR > 60 Random Glucose 83 Calcium 8.9 Total Bilirubin 0.4 AST 17 ALT 21 Alkaline Phosphatase 77 Creatine Kinase Troponin I Total Protein 7.6 Albumin 3.5 Urine Color Colorless Urine Appearance Clear Urine pH 7.0 D Ur Specific [place] 1.006 Urine Protein Negative Urine Glucose (UA) Negative Urine Ketones Negative Urine Blood Negative Urine Nitrite Negative Urine Bilirubin Negative Urine Urobilinogen Negative Ur Leukocyte Esterase Negative 01/08/18 01/08/18 01/09/18 17:00 21:47 08:35 WBC 5.0 RBC 3.93 Hgb 11.8 Hct 35.1 MCV 89.2 MCH 30.0 MCHC 33.7 RDW 13.9 Plt Count 143 MPV 9.8 Absolute Neuts (auto) Neutrophils % Lymphocytes % Monocytes % Eosinophils % Basophils % Nucleated RBC % Sodium Potassium Chloride Carbon Dioxide Anion Gap BUN Creatinine Creat Clearance w eGFR Random Glucose Calcium Total Bilirubin AST ALT Alkaline Phosphatase Creatine Kinase 89 74 Troponin I < 0.02 < 0.02 Total Protein Albumin Urine Color Urine Appearance Urine pH Ur Specific [place] Urine Protein Urine Glucose (UA) Urine Ketones Urine Blood Urine Nitrite Urine Bilirubin Urine Urobilinogen Ur Leukocyte Esterase 01/09/18 08:35 WBC RBC Hgb Hct MCV MCH MCHC RDW Plt Count MPV Absolute Neuts (auto) Neutrophils % Lymphocytes % Monocytes % Eosinophils % Basophils % Nucleated RBC % Sodium 143 Potassium 3.8 Chloride 110 H Carbon Dioxide 25 Anion Gap 8 BUN 17 Creatinine 1.1 H Creat Clearance w eGFR 48.42 Random Glucose 111 H Calcium 8.7 Total Bilirubin AST ALT Alkaline Phosphatase Creatine Kinase Troponin I Total Protein Albumin Urine Color Urine Appearance Urine pH Ur Specific [place] Urine Protein Urine Glucose (UA) Urine Ketones Urine Blood Urine Nitrite Urine Bilirubin Urine Urobilinogen Ur Leukocyte Esterase Physical Exam: NAd , AAOx3. CV: RRR, 2/6 SM at base, LLSB , and apex. Lungs:CTAB Abd: soft, NT, ND , NLBS Ext: no edema Neuro: EOMI, round equal pupils, reactive to light , no faciaL DROOP. TONGUE AND UVULAL AT mid line. strength 5/5 in upper and lower extremities proximally and distally. sensation to light touch NL. Hospital Course: 77 y/o very pleasant lady with h./o HTN and Osteoporosis who presented with ARAIZA , blurry vision , and SOB . she was found to have Hypetensive urgency 1- HTN urgency : cont diovan, HCTZ ( equevalent dose of her home olmesartan / HCTZ) add norvasc . 5 mg did not improve her BP, will increase to 10 daily EKG showed sinus rhythm, RBBB, and TWI in III which was unchanged from EKG in . trop was NL. Cxray with no infiltrate. 2- dispo : cont to monitor as BP is not improving Visit type - Emergency Visit Emergency Visit: Yes ED Registration Date: 01/08/18 Care time: The patient presented to the Emergency Department on the above date and was hospitalized for further evaluation of their emergent condition. - New Patient This patient is new to me today: Yes Date on this admission: 01/09/18 - Critical Care Critical Care patient: No
[2018-01-09] MEDS ORDERED: amLODIPine BESYLATE 5 MG TABLET (FP) PO ONE (16:00)
[2018-01-09] MEDS ORDERED: ATORVASTATIN CA 20 MG TABLET (FP) PO SCH (22:00)
[2018-01-10] MEDS: HEPARIN NA (PORCINE) 5,000 UNITS/ML 1ML VIAL SQ SCH (06:33)
[2018-01-10] MEDS ORDERED: amLODIPine BESYLATE 5 MG TABLET (FP) PO SCH (10:00)
--- NOTE | 2018-01-10 10:33 | EKG ---
Test Reason : Blood Pressure : / mmHG Vent. Rate : 060 BPM Atrial Rate : 060 BPM P-R Int : 156 ms QRS Dur : 130 ms QT Int : 452 ms P-R-T Axes : 047 -27 010 degrees QTc Int : 452 ms NORMAL SINUS RHYTHM RIGHT BUNDLE BRANCH BLOCK MODERATE VOLTAGE CRITERIA FOR LVH, MAY BE NORMAL VARIANT ABNORMAL ECG WHEN COMPARED WITH ECG OF 10-AUG-2017 10:09, NO SIGNIFICANT CHANGE WAS FOUND Confirmed by BHUMI LAKE, TENZIN ([id number]) on 01/10/2018 10:32:53 AM Referred By: Confirmed By:TENZIN TRIPATHI MD
[2018-01-10] MEDS: HYDROCHLOROTHIAZIDE 25 MG TABLET (FP) PO SCH (11:01)
[2018-01-10] MEDS: VALSARTAN 160 MG TABLET (UD) PO SCH (11:01)
[2018-01-10] MEDS: CALCIUM 500MG/VIT-D 200 UNITS COMBO TABLET (FP) PO SCH (11:02)
[2018-01-10] MEDS: PANTOPRAZOLE 40 MG TABLET (FP) PO SCH (11:02)
--- NOTE | 2018-01-10 13:22 | PN ---
Teaching Attending Note Name of Resident: April Romero ATTENDING PHYSICIAN STATEMENT I saw and evaluated the patient. I reviewed the resident's note and discussed the case with the resident. I agree with the resident's findings and plan as documented. SUBJECTIVE: No fever or chills. No abd pain. reports intermittent CP,with deep breaths, that lasted for few seconds ( 2-3 breaths ) . OBJECTIVE: NAD CV : RRR Lungs : CTAB ABd: soft, NT, ND , NL BS . Ext : no edema A/P : 77 y/o very pleasant lady with h/o HTN and Osteoporosis who presented with ARAIZA , blurry vision , and SOB . she was found to have Hypertensive urgency 1- HTN urgency : cont diovan, HCTZ, and norvasc 10 EKG showed sinus rhythm, RBBB, and TWI in III, and anterioseptal leads which was unchanged from EKG in 08/01. trop was NL. Cxray with no infiltrate. repeat EKG this am with no change from prior . pain described over night does not sound cardiac might need a stress test as out pt . 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
[2018-01-10 14:01] VITALS: BP 134/82; PULSE 69; TEMP 98.2
--- NOTE | 2018-01-10 15:16 | DS ---
Physical Exam: SUBJECTIVE: Patient is a 77 y/o female with a history of osteoporosis, GERD, and HLD who presents with hypertensive urgency. Patient reports she still has a slight headache, but feels much better. Overnight patient developed chest pain. Troponins were done and negative. OBJECTIVE: Vital Signs Period Temp Pulse Resp BP Sys/Romero Pulse Ox Last 24 Hr 97.6 F-98.5 F 54-69 18-18 134-178/75-88 96-99 PHYSICAL EXAM GENERAL: Awake, alert, and fully oriented, in no acute distress. HEAD: Normal with no signs of trauma. EYES: Pupils equal, round and reactive to light LUNGS: Breath sounds equal, clear to auscultation bilaterally. HEART: Regular rate and rhythm, ABDOMEN: Soft, nontender, not distended, normoactive bowel sounds, MUSCULOSKELETAL: Normal range of motion at all joints. No bony deformities or tenderness. No CVA tenderness. LOWER EXTREMITIES: 2+ pulses, warm, well-perfused. No calf tenderness. some upper extremity edema NEUROLOGICAL: Cranial nerves II-XII intact. Normal speech. PSYCHIATRIC: Cooperative. Good eye contact. Appropriate mood and affect. SKIN: Warm, dry, normal turgor, LABS Laboratory Results - last 24 hr 01/10/18 09:45 Troponin I < 0.02 HOSPITAL COURSE: Date of Admission:01/08/18 Patient is a 77 y/o female with a history of osteoporosis, GERD, and HLD who presents with headache and shortness of breath. In the ED her blood pressure was found to be 196/77. She was admitted to [facility]. She was given lebatalol 5mg IV push and started on her home medication. Her BP remained high on the and she was monitored for one more day. She developed chest pain over night. Repeat troponins were negative and EKG had no new changes. Her blood pressure stabilized. Patient told to follow up with her college advisor as she needs a stress test. She will continue her oldansteron/HCTZ home medication and she will continue to take amlodipine 10 mg po daily. Patient stable for discharge home CXR: no acute changes Date of Discharge: 01/10/18 Minutes to complete discharge: 37 Discharge Summary Reason For Visit: CHEST PAIN IN ADULT Current Active Problems Hypertensive emergency (Acute) Condition: Improved - Instructions Diet, Activity, Other Instructions: You were admitted for your high blood pressure. Your pressure has returned to a safe range and you are ready for discharge home. You should continue to take these blood pressure medications: Amlodipine 10 mg by mouth daily. is a new medication that was added Olmesartan/Hydrochlorathiazide 40-25 mg to be taken by mouth once daily Please take your blood pressure every morning and write it down in order to show your doctor. A prescription for a blood pressure cuff has been sent to your pharmacy. Please eat a low salt diet to help control your blood pressure. You should follow up with your primary care physician within one week of discharge. You should follow up with a college advisor within one week of discharge in order to continue monitoring your heart. You should have a stress test done, please discuss with your Packing And Wrapping Supervisor. If you begin to experience worsening chest pain, shortness of breath or if any of your symptoms get worse, please call your primary care physician or return to the emergency department. Referrals: mayco weems [Other] - 1 Week Yaniv Magaña [Primary Care Provider] - 1 Week Disposition: HOME - Home Medications Comprehensive Discharge Medication List: Ambulatory Orders Atorvastatin Ca [Lipitor] 20 mg PO HS 10/01/11 Omeprazole 40 mg PO DAILY 08/10/17 Medical Supply, Miscellaneous [Blood Pressure Cuff] 1 each MC DAILY #1 each Olmesartan/Hydrochlorothiazide [Olmesartan-Hctz 40-25 mg Tab] 1 tab PO DAILY Alendronate Sodium [Binosto] 70 mg PO MONTHLY 01/10/18 Amlodipine Besylate [Norvasc -] 10 mg PO DAILY #30 tablet 01/10/18 This patient is new to me today: No Emergency Visit: No Critical Care patient: No - Discharge Referral Referred to [facility] No
--- NOTE | 2018-01-10 16:04 | EKG ---
Test Reason : Blood Pressure : / mmHG Vent. Rate : 062 BPM Atrial Rate : 062 BPM P-R Int : 160 ms QRS Dur : 138 ms QT Int : 458 ms P-R-T Axes : 047 -27 008 degrees QTc Int : 464 ms NORMAL SINUS RHYTHM RIGHT BUNDLE BRANCH BLOCK MODERATE VOLTAGE CRITERIA FOR LVH, MAY BE NORMAL VARIANT ABNORMAL ECG WHEN COMPARED WITH ECG OF 08-JAN-2018 15:15, NO SIGNIFICANT CHANGE WAS FOUND Confirmed by BHUMI LAKE, TENZIN ([id number]) on 01/10/2018 4:04:03 PM Referred By: JENNIFER YOUNGER DR Confirmed By:TENZIN TRIPATHI MD
== END 2018-01-10 16:15 | disposition home or self-care (01) ==
LOC: JER 14:56 → JERBED 19:51 → J4W 01-09 04:31
PROVIDERS: ADMIT Internal Medicine; ATTEND Internal Medicine
PROC: 3E033GC Introduction of Other Therapeutic Substance into Peripheral Vein, Percutaneous Approach (ICD-10-PCS; principal; 2018-01-08)
PROC: 3E013GC Introduction of Other Therapeutic Substance into Subcutaneous Tissue, Percutaneous Approach (ICD-10-PCS; 2018-01-08)
DX: I16.0 Hypertensive urgency (principal); R51 Headache; I10 Essential (primary) hypertension; E78.5 Hyperlipidemia, unspecified; M81.0 Age-related osteoporosis without current pathological fracture; K21.9 Gastro-esophageal reflux disease without esophagitis; I45.10 Unspecified right bundle-branch block; R07.9 Chest pain, unspecified
CPT/HCPCS: 36415; 71046-TC-FY; 80048; 80053; 81003; 82550; 84484; 85025; 85027; 93005; 93010; 96372; 96374; 99281-25; G0378; J1644

== ENCOUNTER 2018-04-10 11:02 | Emergency (ER) | payer OTHER ==
[2018-04-10 11:27] VITALS: TEMP 97.9; BMI 34.5
[2018-04-10] MEDS ORDERED: KETOROLAC TROMETHAMINE 30 MG/1 ML VIAL IVPUSH ONE (11:27)
[2018-04-10] MEDS ORDERED: CYCLOBENZAPRINE HCL 10 MG TABLET (FP) PO ONE (11:27)
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
[2018-04-10] MEDS ORDERED: CYCLOBENZAPRINE HCL 10 MG TABLET (FP) ONE (11:44)
[2018-04-10] MEDS ORDERED: KETOROLAC TROMETHAMINE 30 MG/1 ML VIAL ONE (11:45)
[2018-04-10 11:49] LABS: BASO % 0.9 % (0-2.0); EOS % 6.2 % (0-4.5); HEMATOCRIT 34.6 % (32.4-45.2); HEMOGLOBIN 11.6 GM/dL (10.7-15.3); LYMPH % 20.9 % (8-40); MCH 29.6 pg (25.7-33.7); MCHC 33.6 g/dl (32.0-36.0); MEAN CELL VOLUME 88.2 fl (80-96); MEAN PLT VOLUME 9.9 fl (7.5-11.1); MONO % 11.5 % (3.8-10.2); NEUT % 60.5 % (42.8-82.8); PLATELET COUNT 160 K/MM3 (134-434); RBC 3.92 M/mm3 (3.60-5.2); RDW 13.6 % (11.6-15.6); WHITE BLOOD COUNT 5.1 K/mm3 (4.0-10.0)
[2018-04-10 12:17] LABS: INR 0.97 (0.83-1.09); PROTHROMBIN TIME (PATIENT) 11.4 SEC (9.7-13.0)
[2018-04-10 12:25] LABS: ALBUMIN 3.4 g/dl (3.4-5.0); ALK PHOS 76 U/L (45-117); ANION GAP 6 MMOL/L (8-16); BILIRUBIN,TOTAL 0.4 mg/dL (0.2-1); BLOOD UREA NITROGEN 20 mg/dL (7-18); CALCIUM 8.5 mg/dL (8.5-10.1); CHLORIDE 111 mmol/L (98-107); CO2 23 mmol/L (21-32); CREATININE 0.9 mg/dL (0.55-1.3); GLUCOSE,RANDOM 90 mg/dL (74-106); MAGNESIUM 2.4 mg/dL (1.8-2.4); POTASSIUM 4.3 mmol/L (3.5-5.1); SGOT/AST 15 U/L (15-37); SGPT/ALT 16 U/L (13-61); SODIUM 139 mmol/L (136-145); TOT PROT 7.5 g/dl (6.4-8.2)
--- NOTE | 2018-04-10 13:53 | EKG ---
Test Reason : Blood Pressure : / mmHG Vent. Rate : 061 BPM Atrial Rate : 061 BPM P-R Int : 158 ms QRS Dur : 130 ms QT Int : 462 ms P-R-T Axes : 052 -24 024 degrees QTc Int : 465 ms NORMAL SINUS RHYTHM RIGHT BUNDLE BRANCH BLOCK ABNORMAL ECG WHEN COMPARED WITH ECG OF 10-JAN-2018 10:38, NO SIGNIFICANT CHANGE WAS FOUND Confirmed by MD Glory, Bj ([id number]) on 04/10/2018 1:52:45 PM Referred By: Confirmed By:Bj Holder MD
[2018-04-10 15:18] VITALS: BP 122/57; PULSE 67
== END 2018-04-10 15:27 | disposition home or self-care (01) ==
LOC: JER 11:02
PROC: 3E0333Z Introduction of Anti-inflammatory into Peripheral Vein, Percutaneous Approach (ICD-10-PCS; principal; 2018-04-10)
DX: R07.89 Other chest pain (principal); V48.6XXA Car passenger injured in noncollision transport accident in traffic accident, initial encounter; Y92.488 Other paved roadways as the place of occurrence of the external cause; Y93.89 Activity, other specified; Y99.8 Other external cause status; I10 Essential (primary) hypertension; E78.00 Pure hypercholesterolemia, unspecified; K21.9 Gastro-esophageal reflux disease without esophagitis
CPT/HCPCS: 36415; 71045-TC-FY; 71275-TC; 80053; 82550; 83735; 84484; 85025; 85379; 85610; 93005; 93010; 96374; 99284-25